=== PATIENT | female | born 1970 | race American Indian/Alaskan Native ===

== ENCOUNTER 2020-02-18 22:10 | Emergency (ER) | payer SELFPAY | END 2020-02-18 23:57 | disposition left against medical advice (07) | LOC: ED 22:10 | DX: I10 Essential (primary) hypertension (principal); Z53.21 Procedure and treatment not carried out due to patient leaving prior to being seen by health care provider ==

== ENCOUNTER 2020-09-03 08:33 | Emergency (ER) | payer SELFPAY ==
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
[2020-09-03] MEDS ORDERED: ACETAMINOPHEN 500 MG TAB PO ONE (10:24)
[2020-09-03] MEDS ORDERED: KETOROLAC 30 MG/1 ML INJ IM ONE (10:24)
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
[2020-09-03 11:47] VITALS: BP 167/95
== END 2020-09-03 11:49 | disposition home or self-care (01) ==
LOC: ED 08:33
DX: S16.1XXA Strain of muscle, fascia and tendon at neck level, initial encounter (principal); S40.022A Contusion of left upper arm, initial encounter; I10 Essential (primary) hypertension; E11.9 Type 2 diabetes mellitus without complications; F17.200 Nicotine dependence, unspecified, uncomplicated; Z90.89 Acquired absence of other organs; Z98.890 Other specified postprocedural states; Z79.899 Other long term (current) drug therapy; Z88.8 Allergy status to other drugs, medicaments and biological substances; V49.49XA Driver injured in collision with other motor vehicles in traffic accident, initial encounter; W22.10XA Striking against or struck by unspecified automobile airbag, initial encounter; Y93.89 Activity, other specified; Y92.410 Unspecified street and highway as the place of occurrence of the external cause; Y99.8 Other external cause status
CPT/HCPCS: 72125; 73030; 73080; 96372; 99284; J1885

== ENCOUNTER 2021-08-21 10:11 | Emergency (ER) | payer SELFPAY ==
[2021-08-21 11:32] VITALS: BP 114/73
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
== END 2021-08-21 11:56 | disposition home or self-care (01) ==
LOC: ED 10:11
DX: M79.10 Myalgia, unspecified site (principal); M79.644 Pain in right finger(s); I10 Essential (primary) hypertension; Z91.09 Other allergy status, other than to drugs and biological substances
CPT/HCPCS: 99282